=== PATIENT | female | born 1995 | race Caucasian/White ===

== ENCOUNTER 2016-10-28 21:16 | Emergency (ER) | payer BC ==
[2016-10-28 22:06] VITALS: BP 140/76
--- NOTE | 2016-10-28 23:09 | UC ---
Beth, DoctorCathleen, scribed for Talisha Main MD on 10/28/16 at 2218 . General HPI - HPI Summary HPI Summary: 21 year old female arrived to [facility] [place] c/o loose stools with mucous for one week. She indicates that her diarrhea has not been solid for 1 week and is a light color; she denies any pain during her bowel movements, vomiting, cramping, or abdominal pain. She reports chronic nausea, which is currently no different from baseline. Pt is concerned about possible proctitis after unprotected intercourse; she was tested for gonorrhea and chlamydia but was not tested for HIV or syphilis. Her LMP was on 10/18/2016; she regularly takes control and denies the possibility of . She has not traveled outside of the country and finished a dose of flagyl 1 month ago (taken for bacterial vaginosis ). - History of Current Complaint Chief Complaint: UC Stated Complaint: DIARRHEA Hx Obtained From: Patient Onset/Duration: Gradual Onset, Lasting Days - 1 week since onset, Still Present Onset Severity: Moderate Current Severity: Moderate Pain Intensity: 0 Associated Signs & Symptoms: Positive: Diarrhea - loose stools with mucous, Recent Medication Changes - Finished course of flagyl 1 month ago. Negative: Abdominal Pain, Fever, Melena, Nausea, Vomiting - Allergy/Home Medications Allergies/Adverse Reactions: Allergies Allergy/AdvReac Type Severity Reaction Status Date / Time No Known Allergies Allergy Verified 10/28/16 22:07 PMH/Surg Hx/FS Hx/Imm Hx Previously Healthy: Yes Other History Of: Negative For: HIV - Surgical History Surgical History: None - Family History Known Family History: Positive: Cardiac Disease, Other - FHx of breast cancer, CVA, Bipolar Disorder - Social History Alcohol Use: Rare Substance Use Type: None Smoking Status (MU): Never Smoked Tobacco Review of Systems Constitutional: Other - No fever Gastrointestinal: Diarrhea, Other - No abdominal pain, no vomiting, no nausea. Genitourinary: Negative Neurological: Negative Psychological: Negative All Other Systems Reviewed And Are Negative: Yes Physical Exam Triage Information Reviewed: Yes Appearance: No Pain Distress, Well-Nourished, Ill-Appearing Vital Signs: Initial Vital Signs Temp 97.7 F 10/28/16 21:58 Pulse 76 10/28/16 21:58 Resp 18 10/28/16 21:58 BP 140/76 10/28/16 21:58 Pulse Ox 99 10/28/16 21:58 Vital Signs Reviewed: Yes Eyes: Positive: Conjunctiva Clear ENT: Positive: Normal ENT inspection Neck: Positive: Supple Respiratory: Positive: No respiratory distress Abdomen Description: Positive: Nontender, No Organomegaly, Soft. Negative: CVA Tenderness (R), CVA Tenderness (L), Distended, Guarding, Hernia @, Hepatomegaly , McBurney's Point Tenderness, Peritoneal Signs, Pulsatile Mass, Splenomegaly Bowel Sounds: Positive: Present Musculoskeletal: Positive: Strength Intact, ROM Intact Neurological: Positive: Alert, Muscle Tone Normal Psychological Exam: Normal Skin Exam: Normal Course/Dx - Course Course Of Treatment: 22:33 - Mucous, yellow-colored diarrhea with specks of blood. - Differential Dx - Multi-Symptom Differential Diagnoses: Other - inflammatory bowel disease, infectious colitis, viral dysentery Provider Diagnoses: acute colitis Discharge - Discharge Plan Condition: Stable Disposition: HOME Patient Education Materials: Colitis (ED) Forms: *Work Release Referrals: [facility] [Outside] - 2 Days (You may call to get established with a primary care provider in this area. ) No Primary Care Phys,NOPCP [Primary Care Provider] - Ed Roque MD [Medical Doctor] - (This is the GI specialist acquisition analyst. Call for an appt if no improvement. ) Additional Instructions: We will contact you if you need further treatment based on the blood tests and stool tests that have been sent tonight. Go to the emergency room if you have new or worsening symptoms. The documentation as recorded by the Doctor escamilla Tahera accurately reflects the service I personally performed and the decisions made by me, Talisha Main MD.
[2016-10-29 12:02] LABS: Syphilis Index < 0.1 Index
--- NOTE | 2016-10-29 18:45 | UC ---
Progress - Progress Note Progress Note: Patient contacted and told about the positive C. difficle test. She states that she still has some stooling problems and wants to have this treated as she has had it for a week. She states that she was on Flagyl before she became positive for the C. difficle. Vancomycin prescription sent to [facility]. She said that she was going to follow-up with her primary care provider or her specialist.
== END 2016-10-28 23:10 | disposition home or self-care (01) ==
LOC: UCEAST 21:16
DX: A04.7 Enterocolitis due to Clostridium difficile (principal)
CPT/HCPCS: 36415; 82272; 83630; 86592; 86703; 87045; 87046; 87077; 87328; 87329; 87425; 87493; 87899; 99211; G0463